=== PATIENT | male | born 1950 | race Caucasian/White ===

== ENCOUNTER 2017-03-16 17:04 | Emergency (ER) | payer MEDICARE ==
[2017-03-16 18:09] LABS: BASOPHILS 0.4 % (0-2); EOSINOPHILS 0.4 % (0-7); HEMATOCRIT 43.1 % (42.0-54.0); HEMOGLOBIN 14.1 g/dL (13.5-17.5); IMMATURE GRANULOCYTES 0.2 % (0-5); LYMPHOCYTES 10.9 % (15-50); MCH 27.9 pg (26.0-34.0); MCHC 32.7 g/dL (31.0-37.0); MCV 85.2 fL (80.0-100.0); MEAN PLATELET VOLUME 11.3 fL (7.4-10.4); MONOCYTES 9.6 % (2-11); NEUTROPHILS 78.5 % (40-80); PLATELET COUNT 170 10x3/uL (130-400); RBC 5.06 10x6/uL (4.20-6.10); RDW 13.4 % (11.5-14.5)
[2017-03-16 18:24] LABS: ALBUMIN 3.5 g/dL (3.4-5.0); ANION GAP 12.2 mmol/L (8-16); BILIRUBIN - TOTAL 0.63 mg/dL (0.2-1.3); CALCIUM 8.8 mg/dL (8.5-10.1); CARBON DIOXIDE 29.2 mmol/L (21.0-32.0); CREATININE - SERUM 1.3 mg/dL (0.6-1.3); POTASSIUM - SERUM 4.4 mmol/L (3.5-5.1); PROTEIN - SERUM 6.5 g/dL (6.4-8.2)
[2017-03-16 19:29] LABS: COLOR YELLOW (YELLOW)
[2017-03-16 19:30] LABS: APPEARANCE CLEAR (CLEAR); BILIRUBIN NEGATIVE (NEGATIVE); GLUCOSE NEGATIVE (NEGATIVE); KETONE NEGATIVE (NEGATIVE); LEUKOCYTE ESTERASE NEGATIVE (NEGATIVE); NITRITE NEGATIVE (NEGATIVE); PROTEIN NEGATIVE (NEGATIVE); UROBILINOGEN NORMAL (NORMAL)
== END 2017-03-16 21:09 | disposition home or self-care (01) ==
LOC: D.ER 17:04
PROVIDERS: Emergency Medicine; Nurse Practitioner Family
DX: E86.0 Dehydration (principal); T67.5XXA Heat exhaustion, unspecified, initial encounter; X58.XXXA Exposure to other specified factors, initial encounter; Y93.89 Activity, other specified; Y92.89 Other specified places as the place of occurrence of the external cause; R11.0 Nausea; I10 Essential (primary) hypertension; K21.9 Gastro-esophageal reflux disease without esophagitis

== ENCOUNTER 2018-02-25 14:52 | Emergency (ER) | payer MEDICARE | END 2018-02-25 16:23 | disposition home or self-care (01) | LOC: D.ER 14:52 | DX: S22.42XA Multiple fractures of ribs, left side, initial encounter for closed fracture (principal); W01.0XXA Fall on same level from slipping, tripping and stumbling without subsequent striking against object, initial encounter; Y93.89 Activity, other specified; Y92.019 Unspecified place in single-family (private) house as the place of occurrence of the external cause; I10 Essential (primary) hypertension ==

== ENCOUNTER 2018-02-25 16:32 | Emergency (ER) | payer MEDICARE ==
[2018-02-25 17:01] LABS: BASOPHILS 0.2 % (0-2); EOSINOPHILS 0.1 % (0-7); HEMATOCRIT 44.5 % (42.0-54.0); HEMOGLOBIN 14.3 g/dL (13.5-17.5); IMMATURE GRANULOCYTES 0.3 % (0-5); LYMPHOCYTES 12.3 % (15-50); MCH 27.2 pg (26.0-34.0); MCHC 32.1 g/dL (31.0-37.0); MCV 84.8 fL (80.0-100.0); MEAN PLATELET VOLUME 10.9 fL (7.4-10.4); MONOCYTES 6.4 % (2-11); NEUTROPHILS 80.7 % (40-80); PLATELET COUNT 154 10x3/uL (130-400); RBC 5.25 10x6/uL (4.20-6.10); RDW 13.4 % (11.5-14.5); WBC 13.5 10x3/uL (4.8-10.8)
[2018-02-25 17:21] LABS: ALBUMIN 3.5 g/dL (3.4-5.0); ANION GAP 13.3 mmol/L (8-16); BILIRUBIN - TOTAL 0.58 mg/dL (0.2-1.3); CALCIUM 8.9 mg/dL (8.5-10.1); CARBON DIOXIDE 26.6 mmol/L (21.0-32.0); CREATININE - SERUM 1.3 mg/dL (0.6-1.3); POTASSIUM - SERUM 3.9 mmol/L (3.5-5.1); PROTEIN - SERUM 6.9 g/dL (6.4-8.2)
[2018-02-25 17:54] LABS: INR 1.16 (0.85-1.17); PROTIME 14.4 SECONDS (11.6-15.0)
[2018-02-25 17:56] LABS: CREATINE KINASE 88 UL (21-232); PRO BNP 99 pg/mL (0-125); TROPONIN-I < 0.017 ng/mL (0.000-0.060)
[2018-02-25 18:29] LABS: APPEARANCE CLEAR (CLEAR); BILIRUBIN NEGATIVE (NEGATIVE); COLOR YELLOW (YELLOW); GLUCOSE NEGATIVE (NEGATIVE); KETONE NEGATIVE (NEGATIVE); NITRITE NEGATIVE (NEGATIVE); PROTEIN NEGATIVE (NEGATIVE); UROBILINOGEN NORMAL (NORMAL)
== END 2018-02-25 19:17 | disposition home or self-care (01) ==
LOC: D.ER 16:32
PROVIDERS: Family Medicine; Nurse Practitioner Family
DX: R55 Syncope and collapse (principal); R53.1 Weakness; E86.0 Dehydration

== ENCOUNTER 2018-09-16 03:00 | Emergency (ER) | payer MEDICARE ==
[~2018-09-16] VITALS: Ht 170.2 cm; Wt 60.0 kg
[2018-09-16 03:02] VITALS: Ht 170.2 cm; Wt 60.0 kg
[2018-09-16] MEDS ORDERED: PRINIVIL20 MG PO (03:03)
[2018-09-16] MEDS ORDERED: BAYER CHEWABLE81 MG PO (03:04)
[2018-09-16] MEDS ORDERED: ZOFRAN4 MG PO (03:27)
[2018-09-16 03:50] VITALS: BP 117/59
== END 2018-09-16 03:50 | disposition home or self-care (01) ==
LOC: D.ER 03:00
DX: R11.10 Vomiting, unspecified (principal); I10 Essential (primary) hypertension

== ENCOUNTER → 2018-10-19 08:59 | Outpatient (CLI) | payer MEDICARE ==
[2018-09-16 03:02] VITALS: BMI 20.7
--- NOTE | ~2018-10-19 | ST ---
PATIENT:ELVIRA ARSHAD MEDICAL RECORD: [id number] SEX: M LOCATION:[facility] ORDER #: ADMISSION DATE: 10/19/18 AGE OF PATIENT: 68 REFERRING PHYSICIAN: INTERPRETING PHYSICIAN: GRISELDA ANTHONY MD DATE OF SERVICE: 10/19/2018 INDICATION: Angina, abnormal ECG, hypertension. Nuclear stress test. The patient was exercised on standard Florentin protocol for 10 minutes, terminated due to achievement of greater than 85% max target heart rate response with 32 mCi of sestamibi injected at peak stress, 10 mCi were used previously for rest images. FINDINGS: Gated SPECT reveals preserved ejection fraction at 64% with good wall motioning and thickening and brightening throughout all segments. SPECT imaging Cardiolite was used as myocardial perfusion agent. There is reversible ischemia in the inferior distribution. This includes the basal, mid, apical, inferior segments as well as the apex itself. The degree of reversibility is moderate. The amount of myocardial involved is moderate. OVERALL IMPRESSION: 1. This is an abnormal nuclear stress test. Reversible ischemia inferoapically. 2. Gated SPECT reveals preserved ejection fraction at 64%. In this patient with ongoing symptomatology, the current scan does suggest the presence of hemodynamically significant coronary artery disease. We would proceed with coronary angiography as a followup study. TRANSINT:[id number] Voice Confirmation ID: [id number] DOCUMENT ID: [id number] GRISELDA ANTHONY MD at 1228 CC: FLORENTIN IBRAHIM MD [id number] DICTATION DATE: 10/20/18 1242 BOATSWAIN'S MATE: 10/21/18 0821 DEP CLI 10/19/18 [id number] [place] [address]
[~2018-10-19 08:59] MED LIST: BAYER CHEWABLE81 MG PO; PRINIVIL20 MG PO; ZOFRAN4 MG PO
== END | disposition home or self-care (01) ==
LOC: D.HCCARDIO 08:59
DX: I20.9 Angina pectoris, unspecified (principal)

== ENCOUNTER 2018-10-26 11:23 | Outpatient (CLI) | payer MEDICARE ==
[~2018-10-26] VITALS: Ht 170.2 cm; Wt 61.8 kg
--- NOTE | ~2018-10-26 | OP ---
PATIENT NAME: ELVIAR ARSHAD MEDICAL RECORD: [id number] :46 LOCATION:[facility] ADMISSION DATE: SURGEON: MARIBEL BAPTISTE MD DATE OF OPERATION: 10/26/2018 PROCEDURE: Left heart catheterization, selective coronary angiography, right femoral artery approach. CATHETERS: A 5-Mauritian sheath, 5/4 left and right Noemí, 5/4 pig. The procedure was well tolerated. The patient was returned to the zhang. Sheath was removed. ExoSeal device was placed. FINDINGS: Left ventriculography in 30-degree BURROUGHS view: Normal wall motion and normal systolic function. CORONARY ANATOMY: LEFT MAIN: Left main is free of disease. LAD: Free of disease in the diagonal system. CIRCUMFLEX: Left dominant system. Circumflex gives rise to PDA. It is free of disease. RIGHT CORONARY ARTERY: Rudimentary vessel, free of disease. IMPRESSION: Normal LV systolic function. Normal coronary anatomy. TRANSINT:[id number] Voice Confirmation ID: [id number] DOCUMENT ID: [id number] MARIBEL BAPTISTE MD CC: [id number] DICTATION DATE: 10/26/18 1544 VACCINE SPECIALIST: 10/26/18 1802 DEP CLI 10/26/18 [place] [id number] [place] [id number]
--- NOTE | ~2018-10-26 | HEMODYNAMI ---
PATIENT:ELVIRA ARSHAD MEDICAL RECORD: [id number] : 46 LOCATION:[facility] ADMISSION DATE: 10/26/18 Generatedon:10/26/201815:42 Patient name: ELVIRA ARSHAD Patient #: [id number] SSN: : 1950 Date of study: 10/26/2018 Page: Of Hemodynamic Procedure Report Patient Data Patient Demographics Procedure consent was obtained First Name: ELVIRA Gender: Male Last Name: PAVITHRA : 1950 Middle Initial: ANA Age: 68 year(s) Patient #: [id number] Race: Unknown Additional ID: [id number] Contact details Address: [address] [place] [address] State: [place] City: [place] Zip code: [address] Past Medical History Allergies: No known allergies Admission Admission Data Admission Date: 10/26/2018 Admission Time: 11:23 Procedure Procedure Types Cath Procedure Diagnostic Procedure LHC LHC w/Coronaries Procedure Description Procedure Date Procedure Date: 10/26/2018 Procedure Start Time: 15:33 Procedure End Time: 15:42 Procedure Staff Name Function Jan Morin MD Performing Physician Cindi De RT Monitor Ora Singer RT Scrub Christiano Park RN Nurse Procedure Data Cath Procedure Fluoroscopy Diagnostic fluoroscopy Total fluoroscopy Time: 1.1 time: 1.1 min min Diagnostic fluoroscopy Total fluoroscopy dose: 295 dose: 295 mGy mGy Contrast Material Contrast Material Type Amount (ml) Isovue 300 44 Entry Location Entry Primary Successful Side Size Upsize Upsize Entry Closure Succes sful Closure Location (Fr) 1 (Fr) 2 (Fr) Remarks Device Remarks Femoral Right 5 Fr Exoseal artery Estimated blood loss: 5 ml Diagnostic catheters Device Type Used For End Catheter Placement MULTIPACK JL 4.0 5Fr Left Coronary catheter Angiography MULTIPACK 3DRC 5Fr Right Coronary catheter Angiography MULTIPACK Pigtail 5 Fr LV Angiography catheter Procedure Complications No complications Procedure Medications Medication Administration Route Dosage Oxygen etCO2 Nasal cannula 2 l/min Lidocaine 2% added to field 20 Heparin Flush Bag added to field 2 bags (1000units/500ml NS) 0.9% NaCl I.V. 100 ml/hr Versed I.V. 1 mg Fentanyl I.V. 50 mcg Versed I.V. 1 mg Fentanyl I.V. 50 mcg Versed I.V. 1 mg Fentanyl I.V. 50 mcg Hemodynamics Rest Heart Rate: 63 (bpm) Pressure Samples Time Site Value (mmHg) Purpose Heart Use Rate(bpm) 15:38 LV 101/3,5 EDP 64 Gradients Valve Time Site Site Mean SEP/DFP Peak To Heart Use 1 2 (mmHg) (sec/min) Peak Rate (mmHg) (bpm) Aortic 15:38 LV AO 64 Snapshots Pre Cath Intra NCS Post Cath Vital Signs Time Heart Resp SPO2 etCO2 NIBP (mmHg) Rhythm Pain Sedation Rate (ipm) (%) (mmHg) Status Level (bpm) 15:20:34 67 17 100 29.2 148/70(106) NSR 0 (11) 10(A) , No pain 15:24:48 61 16 100 30 145/75(97) NSR 0 (11) 10(A) , No pain 15:29:02 56 17 98 30 109/67(81) NSR 0 (11) 10(A) , No pain 15:33:05 67 16 95 0 116/62(79) NSR 0 (11) 9(A) , No pain 15:37:13 66 17 98 34.5 117/57(82) NSR 0 (11) 9(A) , No pain 15:41:21 65 17 98 24 125/56(81) NSR 0 (11) 9(A) , No pain Medications Time Medication Route Dose Verified Delivered Reason Notes Eff ectiveness by by 15:24:23 Oxygen etCO2 2 Jan Alvarado used for Nasal l/min [facility] RN procedure cannula 15:24:53 Lidocaine 2% added 20ml Jan Montoya for local to vial [facility] anesthetic field MD ROLAND 15:25:00 Heparin Flush added 2 Jan Jan used for Bag to bags [facility] procedure (1000units/500ml field MD ROLAND NS) 15:25:14 0.9% NaCl I.V. 100 Jan Christiano Per ml/hr [facility] RN physician 15:28:45 Versed I.V. 1 mg Jan Alvarado for [facility] RN sedation 15:28:53 Fentanyl I.V. 50 Jan Alvarado for [facility] [place] [facility] RN sedation 15:31:03 Versed I.V. 1 mg Jan Alvarado for [facility] RN sedation 15:31:07 Fentanyl I.V. 50 Jan Zavalaie for [facility] [place] [facility] RN sedation 15:33:47 Versed I.V. 1 mg Jan Alvarado for [facility] RN sedation 15:33:52 Fentanyl I.V. 50 Jan Zavalaie for [facility] [place] [facility] RN sedation Procedure Log Time Note 15:00:08 Cindi Counts RT(R) sent for patient. Start room use. 15:13:15 Time tracking: Regular hours (M-F 7:00 - 5:00) 15:13:19 Plan of Care:Hemodynamics will remain stable., Cardiac rhythm will remain stable., Comfort level will be maintained., Respiratory function will remain adequate., Patient/ family verbilizes understanding of procedure., Procedure tolerated without complication., Recovers from procedure without complications.. 15:13:24 Patient received from Pre/Post Procedure Room to [facility] 2 Alert and oriented. Tansferred to table in Supine position. 15:13:25 Warm blankets applied, and zuly hugger turned on for patient comfort. 15:13:26 Correct patient and procedure confirmed by team. 15:13:27 Signed procedure consent form obtained from patient. 15:13:28 ECG and BP/O2 sat monitors applied to patient. 15:19:22 Vital chart was started 15::28 Full Disclosure recording started 15:24:23 Oxygen 2 l/min etCO2 Nasal cannula was administered by Christiano Park RN; used for procedure; 15:24:38 Baseline sample Acquired. 15:24:53 Lidocaine 2% 20ml vial added to field was administered by Jan Morin MD; for local anesthetic; 15:25:00 Heparin Flush Bag (1000units/500ml NS) 2 bags added to field was administered by Jan Morin MD; used for procedure; 15:25:04 H&P Date Dictated: 10/04/2018 Within 30 days and on chart., H&P Addendum completed by physician on day of procedure. (MUST COMPLETE FOR ALL OUTPATIENTS). 15:25:06 Pre-procedure instructions explained to patient. 15:25:10 Rhythm: sinus rhythm 15:25:14 0.9% NaCl 100 ml/hr I.V. was administered by Christiano Park RN; Per physician; 15:25:15 Pre-op teaching completed and patient verbalized understanding. 15:25:17 Family in patients room. 15:25:20 Patient NPO since Midnight. 15:25:28 Patient allergic to No known allergies 15:25:31 Is the patient allergic to Iodine/contrast media? No. 15:25:34 Is patient on blood thinner?No 15:25:35 Patient diabetic? No. 15:25:39 Previous problem with sedation/anesthesia? No ? 15:25:41 Snore? Yes 15:25:42 Sleep apnea? No 15:25:43 Deviated septum? No 15:25:43 Opens mouth fully? Yes 15:25:44 Sticks out tongue? Yes 15:25:46 Airway obstruction? No ? 15:25:49 Dentures? Yes in 15::53 Pre procedure: right dorsailis pedis pulse 2+ Normal; easily identifiable; not easily obliterated 15:25:57 Modified Hal's test Ulnar > 7 seconds. 15:26:00 Patient pain scale 0/10 ?. 15:26:07 IV patent on arrival in right forearm with 0.9% NaCl at [facility] 15:26:09 Lab results completed and on chart. 15:26:13 Right groin area was prepped with chlora-prep and draped in sterile fashion 15:26:13 Alarms reviewed by R. N. 15:26:14 Sharps counted by scrub and verified by R.N. 15:27:17 Final Timeout: patient, procedure, and site verified with staff and physician. All members of the team are in agreement. 15:27:19 Right groin site verified by team. 15:27:21 Physical assessment completed. ASA score P 2 - A patient with mild systemic disease as per Jan Morin MD. 15:27:25 Sedation plan: IV Moderate Sedation Medication:Versed, Fentanyl 15::45 Versed 1 mg I.V. was administered by Christiano Prak RN; for sedation; :53 Fentanyl 50 mcg I.V. was administered by Buffie Park RN; for sedation; 15:29:45 Zero performed for pressure channel P1 15:31:03 Versed 1 mg I.V. was administered by Christiano Park RN; for sedation; 15:31:07 Fentanyl 50 mcg I.V. was administered by Christiano Park RN; for sedation; 15:32:57 Zero performed for pressure channel P1 15:33:05 Use device set Femoral Dx 15:33:06 ACIST Syringe (54857) opened to sterile field. 15:33:07 Bag Decanter (2002S) opened to sterile field. 15:33:07 Medline Cath Pack ([id number]) opened to sterile field. 15:33:07 DIAGNOSTIC WIRE .035 260cm J wire (745143) opened to sterile field. 15:33:09 ACIST Hand Control (63333) opened to sterile field. 15:33:09 ACIST Manifold (31397) opened to sterile field. 15:33:09 DIAGNOSTIC Multipack 5Fr catheter set ([id number]) opened to sterile field. 15:33:10 Tegaderm 4 x 4 (1626W) opened to sterile field. 15:33:11 SHEATH 5FR [place] (FQU954) opened to sterile field. 15:33:17 Procedure started. 15:33:19 Local anesthetic to right femoral artery with Lidocaine 2% by Jan Morin MD.INITIAL ACCESS ONLY 15:33:47 Versed 1 mg I.V. was administered by Christiano Park RN; for sedation; 15:33:52 Fentanyl 50 mcg I.V. was administered by Christiano Park RN; for sedation; 15:34:01 A 5 Fr sheath was inserted into the Right Femoral artery 15:34:36 A MULTIPACK JL 4.0 5Fr catheter was advanced over the wire and used for Left Coronary Angiography. 15:35:57 Catheter removed. 15:36:03 A MULTIPACK 3DRC 5Fr catheter was advanced over the wire and used for Right Coronary Angiography. 15:37:01 Catheter removed. 15:37:24 A MULTIPACK Pigtail 5 Fr catheter was advanced over the wire and used for LV Angiography. 15:37:29 EXOSEAL 5Fr (EX500) opened to sterile field. 15:38:31 LV gram done using BURROUGHS 15:38:34 LV hemodynamics recorded. 15:38:36 Injector settings: Ml/sec: 10, Volume: 20, 15:38:48 EF : 55 % 15:38:52 Catheter removed. 15:39:01 Sheath removed intact; hemostasis achieved with Exoseal to the Right Femoral artery. 15:39:04 Procedure ended.(Physican Out) 15:39:16 Fluoroscopy time 01.10 minutes. 15:39:20 Flurop Dose total: 295 15:39:20 Fluoroscopy dose: 295 mGy 15:39:29 Contrast amount:Isovue 300 44ml. 15:39:31 Sharps counted by scrub and verified by R.N. 15:39:32 Insertion/operative site no bleeding no hematoma. 15:39:34 Post-op/insertion site Right Femoral artery dressed using a 4 x 4 and Tegaderm. 15:39:37 Post right femoral artery:stable, clean and dry 15:39:40 Post Procedure Pulses reassessed and unchanged 15:39:44 Post-procedure physical assessment completed. ASA score P 2 - A patient with mild systemic disease as per Jan Morin MD. 15:39:47 Post procedure rhythm: unchanged. 15:39:50 Estimated blood loss: 5 ml 15:39:52 Post procedure instruction explained to patient.Patient verbalizes understanding. 15:39:52 Patient needs reinforcement of post procedure teaching. 15:39:58 Procedure Complication : No complications 15:40:01 See physician's report for complete and final results. 15:41:00 Procedure and supply charges have been captured, reviewed, submitted and are correct. 15:42:01 Vital chart was stopped 15:42:02 Report given to Pre/Post Procedure Room. 15:42:05 Patient transfered to Pre/Post Procedure Room with Stretcher. 15:42:12 Procedure ended. 15:42:12 Full Disclosure recording stopped 15:42:16 End room use (Document Last) Device Usage Item Name Manufacture Quantity Catalog Hospital Part Current Minimal L ot# / Number Charge Number Stock Stock Serial# Code ACIST Acist 1 33673 667295 068605 081939 20 Syringe Medical (06920) Systems Inc Bag Microtek 1 513648 69022 764867 5 Decanter Medical Inc. () Medline Medline 1 [id number] 128059 21502 038588 5 Cath Pack ([id number]) DIAGNOSTIC [place] 1 001859 327402 066425 159058 30 WIRE .035 260cm J wire (244596) ACIST Hand Acist 1 21286 044360 411024 648264 5 Control Medical (16785) Systems Inc ACIST Acist 1 51772 251993 656223 017915 5 Manifold Medical (91699) Systems Inc DIAGNOSTIC Cardinal 1 [id number] 146996 60322 201789 30 Multipack Health 5Fr catheter set ([id number]) Tegaderm 4 3M 1 1626W 629105 658765 220608 5 x 4 (1626W) SHEATH 5FR Terumo 1 HVE947 258327 409178 813022 5 [place] (SAR525) MULTIPACK Cardinal 1 209601 5 JL 4.0 5Fr Health catheter MULTIPACK Cardinal 1 802266 5 3DRC 5Fr Health catheter MULTIPACK Cardinal 1 155563 5 Pigtail 5 Health Fr catheter EXOSEAL 5Fr Cardinal 1 EX500 739096 074020 660831 10 (EX500) Health Signature Audit [place]gins Stage Time Signature Unsigned Intra-Procedure 10/26/2018 Cindi 3:42:26 PM Counts RT(R) Signatures Monitor : Cindi Signature : Counts RT Date : Time : [address] [address]
[2018-10-26 12:18] VITALS: BP 141/60; Ht 170.2 cm; Wt 61.8 kg
[2018-10-26 12:44] LABS: BASOPHILS 0.7 % (0-2); EOSINOPHILS 1.3 % (0-7); HEMATOCRIT 49.8 % (42.0-54.0); HEMOGLOBIN 16.6 g/dL (13.5-17.5); IMMATURE GRANULOCYTES 0.1 % (0-5); LYMPHOCYTES 37.3 % (15-50); MCHC 33.3 g/dL (31.0-37.0); MCV 84.1 fL (80.0-100.0); MEAN PLATELET VOLUME 10.9 fL (7.4-10.4); MONOCYTES 8.2 % (2-11); NEUTROPHILS 52.4 % (40-80); RBC 5.92 10x6/uL (4.20-6.10); RDW 13.8 % (11.5-14.5)
[2018-10-26 12:46] LABS: CALCIUM 9.8 mg/dL (8.5-10.1); CARBON DIOXIDE 27.1 mmol/L (21.0-32.0); CREATININE - SERUM 1.3 mg/dL (0.6-1.3); POTASSIUM - SERUM 4.1 mmol/L (3.5-5.1)
[2018-10-26 12:54] LABS: PLATELET COUNT 194 10x3/uL (130-400)
== END 2018-10-26 17:40 | disposition home or self-care (01) ==
LOC: D.CATH 11:23
PROVIDERS: Internal Medicine Interventional Cardiology
DX: I20.9 Angina pectoris, unspecified (principal); Z01.812 Encounter for preprocedural laboratory examination